=== PATIENT | male | born 1975 | race Caucasian/White ===

== ENCOUNTER 2016-07-23 10:54 | Emergency (ER) | payer OTHER ==
[~2016-07-23] VITALS: Ht 182.9 cm; Wt 74.8 kg
--- NOTE | 2016-07-23 10:54 | NUR ---
1049 ARRIVAL: PT TO RM 5 VIA EMS. INITIALLY PT APPEARED UNABLE TO TRANSFER FROM STRETCHER TO STRETCHER ON HIS OWN. EMS STATES PT WAS AMBULATING FINE AT THE SCENE UNTIL THE PD ARRIVED AND THEN PT BEGAN TO APPEAR IMPAIRED. WHILE DOING HIS TRIAGE, PILAR ARRIVED AND IT WAS REVEALED THAT PT HAD GIVEN A FALSE NAME. I INFORMED THE PT THAT WE COULDNT TREAT HIM UNLESS HE REVEALED TRUE SYMPTOMS. PT IMMEDIATELY STOPPED HAVING TROUBLE TALKING AND SPOKE IN A NORMAL VOICE. PD STATES HE WILL BE IN CUSTODY ONCE CLEARED BY THE HOSPITAL. PT IS ALERT AND COOP. NAD. COLOR PINK. ALL VITALS STABLE
--- NOTE | 2016-07-23 10:54 | NUR ---
1049 ARRIVAL PT TO RM 5 VIA EMS. UPON ARRIVAL HE APPEARED TO NOT HAVE ANY STRENGTH. REQUIRED ASSISTANCE TO MOVE TO THE STRETCHER. REPORT RECEIVED FROM EMS. TOLD PT HAS BEEN AMBULATING WELL ON HIS OWN AND ABLE TO DO ALL MOVEMENTS. WHILE INITIALLY TRIAGING THE PT HE WAS WHISPERING. PD ARRIVED WHILE DOING THE INTERVIEW AND PT BEGAN TO SPEAK IN A NORMAL VOICE. I EXPLAINED TO THE PT THAT I COULD NOT TREAT HIM IF HE WASNT HONEST WITH HIS SYMPTOMS. IT WAS ALSO REVEALED THAT HE HAD LIED ABOUT HIS NAME. INITIALLY HE GAVE ME THE NAME
[2016-07-23 11:58] LABS: BASOPHIL % 0.4 % (0.0-0.2); EOSINOPHIL % 0.4 % (0.0-5.0); HEMATOCRIT 43.9 % (37.0-53.0); HEMOGLOBIN 15.1 g/dL (13.9-16.3); LYMPHOCYTES # 0.9 10^3/uL (1.0-4.8); LYMPHOCYTES % 18.3 % (24.0-44.0); MEAN CELL HGB 28.9 pg (26-34); MEAN CELL HGB CONCENTRATION 34.4 g/dL (33-37); MEAN CORP VOLUME 84.1 fL (78-100); MEAN PLATELET VOLUME 8.9 fL (7.8-11.0); MONOCYTES # 0.3 10^3/uL (0.3-0.8); MONOCYTES % 5.8 % (5.0-12.0); NEUTROPHIL # 3.5 10^3/uL (1.8-7.7); NEUTROPHILS % 74.9 % (41.0-85.0); RED CELL DISTRIBUTION WIDTH 13.1 % (11.5-14.5); WHITE BLOOD CELL 4.7 10^3/uL (4.5-11.0)
--- NOTE | 2016-07-23 12:01 | ER.PDOC ---
General Chief Complaint: General Complaint Stated Complaint: POSS SEIZURE Time seen by MD: 11:11 Source: patient History of Present Illness Initial Comments H/O SZ, NONCOMPLIANCE WITH MEDS Timing/Onset/Duration: Single Episode Preceding Symptoms/Context: none Motor Activity: shaking in one area Post-ictal Symptoms: none Injury: none Allergies: Coded Allergies: Penicillins (Verified Allergy, Unknown, THROAT SWELLS, 07/23/16) codeine (Verified Allergy, Unknown, DISORIENTED, 07/23/16) Past Medical History Medical History: asthma Social History Smoking: cigarettes, less than 1 pack/day Alcohol Use: occasionally Drug Use: none Constitutional: malaise weakness EENTM: no symptoms reported Respiratory: cough shortness of breath All Other Systems: Reviewed and Negative Physical Exam General Appearance: moderate distress, lethargic Neck/Back: neck supple Respiratory: no resp distress, rales CVS: reg rate & rhythm, heart sounds nml Abdomen: non-tender, no organomegaly, no distention Skin: color nml, no rash, warm/dry Extremities: non-tender, nml ROM, no pedal edema Observed Seizure Activity: focal Neuro/Psych: oriented x 3, speech nml, mood/affect nml Cerebellar: nml tested, nml Romberg Sensorimotor: no motor deficit, no sensory deficit, reflexes nml Departure Time of Disposition: 12:33 Disposition: 01 HOME, SELF-CARE Impression: Primary Impression: Seizure disorder Referrals: PCP,UNKNOWN (PCP) PRIMARY CARE PROVIDER MYA MCPHERSON MD Jul 23, 2016 12:01
[2016-07-23] MEDS ORDERED: ZOFRAN ODT ONE (12:02)
[2016-07-23] MEDS ORDERED: ZOFRAN ODT SL STA (12:05)
[2016-07-23 12:30] LABS: ALANINE AMINOTRANSFERASE 25 U/L (12-78); ALKALINE PHOSPHATASE 49 U/L (50-136); ASPARTATE AMINO TRANSFERASE 21 U/L (0-35); CALCIUM 8.6 mg/dL (8.4-10.5); CARBON DIOXIDE 26.7 mmol/L (20.0-32); GLUCOSE 98 mg/dL (70-110)
[2016-07-23 12:41] VITALS: BP 122/94
[2016-07-23] MEDS ORDERED: TYLENOL PO ONE (12:45)
--- NOTE | 2016-07-23 12:49 | NUR ---
AFTER PT GIVEN DC ORDERS. STATES HE CONT TO HAVE A HEADACHE. ORDERS RECEIVED TO GIVE 1 G TYLENOL. TOOK WELL. PT CONT TO BE ALERT AND ZAN
== END 2016-07-23 12:41 | disposition home or self-care (01) ==
LOC: ER 10:54
DX: G40.909 Epilepsy, unspecified, not intractable, without status epilepticus (principal); J45.909 Unspecified asthma, uncomplicated; R06.02 Shortness of breath; R53.1 Weakness; F17.210 Nicotine dependence, cigarettes, uncomplicated; Z88.0 Allergy status to penicillin; Z88.5 Allergy status to narcotic agent
CPT/HCPCS: 36415; 80053; 80156; 82550; 83880; 84484; 85025; 85379; 85610; 85730; 86677; 93005; 99285; Q0162